=== PATIENT | female | born 1970 | race Caucasian/White ===

== ENCOUNTER 2017-07-19 22:33 | Observation (INO) | payer BC ==
[2017-07-19 23:43] LABS: Mean Corpuscular HGB Conc 35 g/dl (31-36)
[2017-07-19 23:53] LABS: Hematocrit 41 % (35-47); Hemoglobin 14.2 g/dl (12.0-16.0); Mean Corpuscular Hemoglobin 33 pg (27-31); Mean Corpuscular Volume 95 fL (80-97); Mean Platelet Volume 9 um3 (7.4-10.4); Red Blood Count 4.33 10^6/ul (4.0-5.4); Red Cell Distribution Width 12 % (10.5-15)
[2017-07-19 23:57] LABS: Potassium 3.8 mmol/L (3.5-5.0)
[2017-07-19 23:58] LABS: Albumin 4.2 g/dL (3.2-5.2); Calcium 9.1 mg/dL (8.6-10.3); EGFR African American 83.8 (>60); EGFR Non-African American 65.2 (>60); Total Bilirubin 0.5 mg/dL (0.2-1.0); Total Protein 7.2 g/dL (6.4-8.9)
[2017-07-20] MEDS ORDERED: Iohexol 350* (CONTRAST) 500 ML MDV IV ONE (00:44)
[2017-07-20] MEDS ORDERED: Aspirin TAB* 325 MG PO ONE (01:50)
[2017-07-20] MEDS ORDERED: Acetaminophen TAB* 325 MG PO PRN (02:05)
[2017-07-20] MEDS ORDERED: Albuterol HFA INHALER* 8 gm MDI INH PRN (02:40)
[2017-07-20] MEDS ORDERED: Calcium Carbonate CHEW TAB* 500 MG (TUMS) PO PRN (02:40)
--- NOTE | 2017-07-20 02:46 | ED ---
Heriberto Foley Angela, scribed for Chuckie Lazaro on 07/19/17 at 2255 . Neurological HPI - HPI Summary HPI Summary: This pt is a 47 y/o female presenting [facility] c/o sudden onset of left arm and left leg numbness since 21:00 today. She states "my hand locked up and I couldn' t move it." Now, pt reports her numbness has resolved, but she feels her left side of face is tingly and her left arm "just doesn't feel right." Pt notes that before this episode, she was fine and was baking. She denies past history of strokes. Pt states she has severe asthma. Pt denies tobacco use but notes she drinks beer once in a while. - History of Current Complaint Chief Complaint: EDExtremityUpper Stated Complaint: LT ARM AND LEG NUMBNESS Time Seen by Provider: 07/19/17 22:50 Hx Obtained From: Patient Hx Last Menstrual Period: ablasion - 12/2013 Onset/Duration: Started hours ago, Still Present Timing: Sudden Onset Neurological Deficit Location: RUE, RLE Pain Intensity: 0 Character: Numbness/Tingling Aggravating: Nothing Alleviating: Nothing Associated Signs and Symptoms: Positive: Numbness - Allergy/Home Medications Allergies/Adverse Reactions: Allergies Allergy/AdvReac Type Severity Reaction Status Date / Time Hydrocodone Allergy Nausea And Verified 05/26/16 08:00 Vomiting ENVIRONMENTAL Allergy Unknown Uncoded 05/26/16 08:00 Reaction Details SPICY FOODS Allergy Unknown Uncoded 05/26/16 08:00 Reaction Details WHEAT, BARLEY, RYE Allergy Unknown Uncoded 05/26/16 08:00 Reaction Details PMH/Surg Hx/FS Hx/Imm Hx Endocrine/Hematology History: Denies: Hx Diabetes, Hx Thyroid Disease Cardiovascular History: Denies: Hx Hypertension Respiratory History: Reports: Hx Asthma - PRN INHALER Denies: Hx Chronic Obstructive Pulmonary Disease (COPD) GI History: Reports: Hx Gastroesophageal Reflux Disease Denies: Hx Ulcer Musculoskeletal History: Reports: Hx Tendonitis - HISTORY OF Sensory History: Denies: Hx Contacts or Glasses, Hx Hearing Aid Opthamlomology History: Denies: Hx Contacts or Glasses - Surgical History Surgery Procedure, Year, and Place: tubal ligation. ablasion. right shoulder surgery. sinus surgery. polyp removal from colon 2015-. COLONOSCOPY-WITH POLYP-2012 Hx Anesthesia Reactions: Yes - DIZZINESS-2016 Infectious Disease History: No Infectious Disease History: Denies: Hx Clostridium Difficile, Hx Hepatitis, Hx Human Immunodeficiency Virus (HIV), Hx of Known/Suspected MRSA, Hx Shingles, Hx Tuberculosis, Hx Known/ Suspected VRE, Hx Known/Suspected VRSA, History Other Infectious Disease, Traveled Outside the [place] in Last 30 Days - Family History Known Family History: Positive: Cardiac Disease - Brother: due to [place]., Renal Disease - Sister, Other - Father: colon CA - Social History Alcohol Use: Weekly Alcohol Amount: 12 PACK PER WEEK Substance Use Type: Reports: None Hx Tobacco Use: No - SECOND HAND SMOKE Smoking Status (MU): Former Smoker Amount Used/How Often: X 30 YEARS- SMOKED WHEN WAS STRESSED Have You Smoked in the Last Year: No Review of Systems Negative: Fever, Chills Eyes: Negative ENT: Negative Cardiovascular: Negative Respiratory: Negative Gastrointestinal: Negative Genitourinary: Negative Positive: Paresthesia - right side of face, right arm, Numbness - in right arm and right leg All Other Systems Reviewed And Are Negative: Yes Physical Exam - Summary Physical Exam Summary: Appearance: Well appearing, no pain distress Skin: warm, dry, reflects adequate perfusion Head/face: normal Eyes: EOMI, JACQUES ENT: normal Neck: supple, nontender Respiratory: CTA, breath sounds present Cardiovascular: RRR, pulses symmetrical Abdomen: nontender, soft Bowel: present Musculoskeletal: normal, strength/ROM intact Neuro: normal, sensory motor intact, A&Ox3. NIH scale score is 0. GCS: 15 Triage Information Reviewed: Yes Vital Signs On Initial Exam: Initial Vitals Temp Pulse Resp BP Pulse Ox 98.4 F 86 16 138/67 99 07/19/17 22:43 07/19/17 22:43 07/19/17 22:43 07/19/17 22:43 07/19/17 22:43 Vital Signs Reviewed: Yes - [place] Coma Scale Best Eye Response: 4 - Spontaneous Best Motor Response: 6 - Obeys Commands Best Verbal Response: 5 - Oriented Diagnostics - Vital Signs Vital Signs Temp Pulse Resp BP Pulse Ox 07/19/17 22:43 98.4 F 86 16 138/67 99 - Laboratory Lab Results: Lab Results 07/19/17 07/19/17 07/19/17 Range/Units 23:26 23:26 23:26 WBC 8.0 (3.5-10.8) 10^3/ul RBC 4.33 (4.0-5.4) 10^6/ul Hgb 14.2 (12.0-16.0) g/dl Hct 41 (35-47) % MCV 95 (80-97) fL MCH 33 H (27-31) pg MCHC 35 (31-36) g/dl RDW 12 (10.5-15) % Plt Count 344 (150-450) 10^3/ul MPV 9 (7.4-10.4) um3 Neut % (Auto) 71.0 (38-83) % Lymph % (Auto) 16.9 L (25-47) % [place] % (Auto) 7.7 (1-9) % Eos % (Auto) 3.1 (0-6) % Baso % (Auto) 1.3 (0-2) % Absolute Neuts (auto) 5.7 (1.5-7.7) 10^3/ul Absolute Lymphs (auto) 1.4 (1.0-4.8) 10^3/ul Absolute Monos (auto) 0.6 (0-0.8) 10^3/ul Absolute Eos (auto) 0.2 (0-0.6) 10^3/ul Absolute Basos (auto) 0.1 (0-0.2) 10^3/ul Absolute Nucleated RBC 0 10^3/ul Nucleated RBC % 0.1 INR (Anticoag Therapy) 0.94 (0.77-1.02) APTT 26.5 (26.0-36.3) seconds Sodium 134 (133-145) mmol/L Potassium 3.8 (3.5-5.0) mmol/L Chloride 106 (101-111) mmol/L Carbon Dioxide 23 (22-32) mmol/L Anion Gap 5 (2-11) mmol/L BUN 11 (6-24) mg/dL Creatinine 0.92 (0.51-0.95) mg/dL Est GFR ( Amer) 83.8 (>60) Est GFR (Non-Af Amer) 65.2 (>60) BUN/Creatinine Ratio 12.0 (8-20) Glucose 108 H (70-100) mg/dL Calcium 9.1 (8.6-10.3) mg/dL Total Bilirubin 0.50 (0.2-1.0) mg/dL AST 15 (13-39) U/L ALT 13 (7-52) U/L Alkaline Phosphatase 60 (34-104) U/L Troponin I 0.00 (<0.04) ng/mL Total Protein 7.2 (6.4-8.9) g/dL Albumin 4.2 (3.2-5.2) g/dL Globulin 3.0 (2-4) g/dL Albumin/Globulin Ratio 1.4 (1-3) Result Diagrams: 07/19/17 23:26 07/19/17 23:26 Lab Statement: Any lab studies that have been ordered have been reviewed, and results considered in the medical decision making process. - Radiology Chest XR Xray Interpretation: No Acute Changes - Negative chest XR. Radiology Interpretation Completed By: ED Physician - CT Brain CT CT Interpretation: No Acute Changes - IMPRESSION: No detectable infarct. Please note that infarcts less than 6 hours from onset may not be detectable on CT. MRI is more sensitive. No hemorrhage. No mass. No edema shift of herniation. Dr. Lazaro has reviewed this radiology report. CT Interpretation Completed By: Radiologist Head CTA CT Interpretation: No Acute Changes - IMPRESSION: Brain: The anterior and posterior arterial circulation are patent. No stenosis occlusion dissection or aneurysm. CT angiography neck: The cervical common carotid arteries, bifurcations, the cervical internal carotid arteries and the bilateral cervical vertebral arteries are all patent. No stenosis occlusion dissection or aneurysm. Dr. Lazaro has reviewed this radiology report. CT Interpretation Completed By: Radiologist - EKG 2310 Cardiac Rate: NL EKG Rhythm: Sinus Rhythm - at 87 bpm EKG Interpretation: No acute changes NIH Scale - NIH Scale Level of Consciousness: Alert/Keenly Responsive Ask Patient the Month and His/Her Age: Both Correct Ask Pt to Open/Close Eyes and Gauntlet Pairer/Release Non-Paretic Hand: Both Correctly Best Gaze (Only Horizontal Eye Movement): Normal Visual Field Testing: No Visual Loss Facial Paresis-Pt to Smile & Close Eyes or Grimace Symmetry: Normal/Symmetrical Motor Function - Right Arm: No Drift-Holds 10 Seconds Motor Function - Left Arm: No Drift-Holds 10 Seconds Motor Function - Right Leg: No Drift-Holds 10 Seconds Motor Function - Left Leg: No Drift-Holds 10 Seconds Limb Ataxia-Must be out of Proportion to Weakness Present: Absent Sensory (Use Pinprick to Test Arms/Legs/Trunk/Face): Normal Best Language (Describe Picture, Name Items): No Aphasia Dysarthria (Read Several Words): Normal Extinction and Inattention: No Abnormality Total Score: 0 Course/Dx - Course Course Of Treatment: Pt is a 47 y/o female who presents with sudden onset of left arm and left leg numbness since 21:00 today, now with tingling. Bloodwork, EKG, chest XR, and CT brain were obtained. Chest XR is negative. CT brain is negative.d/w dr Juarez and [facility] [place] who recommended cta of head and neck . CTA of the head is negative. I discussed the pt's case with Dr. Herring , who has agreed to admit the pt. Dx of TIA. - Diagnoses Provider Diagnoses: TIA (transient ischemic attack) - Physician Notifications Discussed Care Of Patient With: Radiologist Time Discussed With Above Provider: 23:25 Instructed by Provider To: Other - Radiologist called me regarding the negative CT brain results. [23:27] I discussed the pt's case with Dr. Juarez, neurologist , who recommends to call [facility] for telestroke. [01:57] I spoke with Dr. Herring, hospitalist, who has agreed to admit the pt. - Critical Care Time Critical Care Time: 30-74 min - 30 minutes critical care time Discharge - Discharge Plan Condition: Stable Disposition: ADMITTED TO [facility] The documentation as recorded by the Heriberto reddy Angela accurately reflects the service I personally performed and the decisions made by me, Chuckie Lazaro.
[2017-07-20 04:27] LABS: TSH (Thyroid Stimulating Horm) 2.29 mcIU/mL (0.34-5.60)
[2017-07-20] MEDS ORDERED: Omeprazole CAP* 20 MG PO SCH (06:00)
--- NOTE | 2017-07-20 06:11 | HP ---
CC: Dr. Shah; Dr. Juarez * HISTORY AND PHYSICAL: DATE OF ADMISSION: 07/20/17 PRIMARY CARE PROVIDER: Dr. Shah CHIEF COMPLAINT: Left-sided numbness, transient, resolved. 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 The patient stated that the night prior to her presentation, she slept only 4 hours. Last night she slept pretty well, but she noticed transient episodes of left arm and leg numbness that lasted approximately 30 minutes. The patient stated that she was able to walk without any problems, but she felt "so weak" that she laid on the floor when she was waiting for the ambulance to arrive. She denied any problems with vision or headache. She has no pain. She presented to the ED for evaluation. Her neurologic symptoms resolved. She is going to be placed on overnight observation with a diagnosis of possibility of TIA. PAST MEDICAL HISTORY: 1. History of gastroesophageal reflux disease. 2. History of asthma. 3. History of eosinophilic esophagitis. 4. Status post tubal ligation. 5. History of uterine ablation. MEDICATIONS: Include 1. Advair 1 inhalation twice a day. 2. Tums on a p.r.n. basis. 3. Albuterol inhaler on a p.r.n. basis. 4. Xyzal 1 tablet daily. ALLERGIES: Include HYDROCODONE. FAMILY HISTORY: Positive for father who of colon cancer in his 80s. Mother who of thyroid cancer. The patient's sister had a history of kidney disease. SOCIAL HISTORY: The patient states that she drinks several beers a weekend, but she does not during during the week days. She quit smoking 5 years ago and she smoked "occasionally" from [id number]-rw-gyrb. She could not really quantify it. She denies any illicit drug use. She lives with her who would be her surrogate. REVIEW OF SYSTEMS: Please see history of present illness. All the remaining 12 - systems are reviewed with the patient and were otherwise negative. PHYSICAL EXAMINATION GENERAL: The patient is a very pleasant 47-year-old female who is in no acute distress. Alert, awake and oriented x3. VITAL SIGNS: Blood pressure 114/71, heart rate of 101 and regular, respiratory rate 25, oxygen saturation 99% on room air. Temperature of 98.4. HEENT: Head: Atraumatic, normocephalic. Eyes: Pupils are equal and reactive to light and accommodation. Oropharynx clear. Mucosa moist. NECK: Supple. No JVD and no bruits bilaterally. RESPIRATORY: Clear to auscultation bilaterally. CARDIOVASCULAR: Regular rate and rhythm. No murmur. ABDOMEN: Soft and nontender. Bowel sound are present in all 4 quadrants. EXTREMITIES: There is no edema. Pulses are +2 bilaterally. There is no clubbing or cyanosis. NEURO EVALUATION: Speech clear. Cranial nerves II through XII grossly intact. Motor strength is 5/5 bilaterally in bilateral lower extremities. The patient does appear to have slightly weaker handgrip on the left. The patient is right hand dominant. Obbswt-ud-uhnt is noted to be symmetric. There was no sensation deficit noted. Patient does have also fine tremor in bilateral hands on evaluation. She appears mildly anxious. PSYCHIATRIC EVALUATION: The patient is oriented x3 with mildly anxious appearing. DIAGNOSTIC STUDIES/LABORATORY DATA: Show a sodium of 134, potassium 3.8, chloride 106, carbon dioxide 23, BUN 11, creatinine 0.92. Liver function tests are unremarkable. Troponin of 0. CBC: White cell count of 8.0, hemoglobin of 14.2, hematocrit of 41 and platelets of 344. The patient's head CTA was verbally reported to Dr. Lazaro who reported that to me. Apparently that was unremarkable. The official report is still pending at the time of dictation. The patient's EKG showed normal sinus rhythm with no significant ST changes. CT of the head showed no detectable infarct. ASSESSMENT AND PLAN: 1. A 47-year-old female who has been under a significant amount of stress, is not sleeping well due to problems with working parking cashier for the past couple of months. The patient has transient left-sided numbness. I am not 100% sure if the patient's left handgrip weakness is functional or not at this point. She does not have numbness in her fingers. Her rgoynq-qw-gbms is not dysmetric. She does not have pronator drift. So far her workup had been unremarkable. She is going to be observed on the telemetry monitoring bed. Transthoracic echocardiogram with bubble study is going to be obtained as well as MRI of the brain. The patient is going to be placed on aspirin. I also asked Dr. Juarez to see the patient in consultation. 2. In regards to the patient's asthma, it is well controlled. There is no evidence of wheezing upon evaluation. Advil and albuterol is going to be continued. 3. Gastroesophageal reflux disease: The patient is going to be continued on Tums as she requested. 4. For DVT prophylaxis, the patient is fully ambulatory and that is going to be encouraged. 5. The patient code status is full and her surrogate is her . TIME SPENT: Approximately 60 minutes was spent on admission of this patient, more than half of that time was spent [id number] with the patient during the interview and physical exam. [id number]/[facility] #: [id number] LUZ
[2017-07-20 06:20] LABS: HDL Cholesterol 56.7 mg/dL
--- NOTE | 2017-07-20 07:52 | RAD ---
Indication: Stroke. CT of the brain was performed without IV contrast. Ventricular structures are midline. No midline shift is noted. The extraction spaces are unremarkable. Intradural structures are midline. No midline shift is noted. The extra-axial spaces are unremarkable. No evidence of intracranial mass or hemorrhage. No other high or low density lesions are identified. Mastoid air cells and paranasal sinuses are otherwise unremarkable. IMPRESSION: No intracranial mass or hemorrhage is noted. Findings were discussed with Dr. Lazaro at 2324 hours.
--- NOTE | 2017-07-20 08:11 | RAD ---
Indication: LEFT side chest pain and tingling. Shortness of breath. Asthma. Cardiac disease. Comparison: No relevant prior exams available on the [facility] PACS for comparison. Technique: Upright AP 2330 hours Report: Clear lungs and pleural spaces. Negative for pneumothorax. The heart, pulmonary vasculature, and mediastinal contours are unremarkable. Unremarkable osseous structures and soft tissue contours. IMPRESSION: No evidence for acute intrathoracic disease.
--- NOTE | 2017-07-20 08:20 | RAD ---
Indication: Stroke. Contrast: Administered 80.2 ml of OMNIPAQUE 350 mg/ml CTA of the neck and head was performed after IV contrast demonstration. Coronal and sagittal reconstructed images were obtained. The carotid arteries demonstrates no stenosis. Bifurcation is unremarkable. No evidence of stenosis is noted in the internal carotid arteries. No evidence of carotid artery dissection is noted. The intracranial vessels including the intracranial carotid arteries are unremarkable. Anterior and middle cerebral arteries demonstrates normal bifurcation. No evidence of branch occlusion is identified. No aneurysmal dilatation is noted. IMPRESSION: No intracranial lesion is identified. No evidence of aortic dissection. No branch occlusion is noted.
[2017-07-20] MEDS ORDERED: Aspirin Low Dose CHEW TAB* 81 MG PO SCH (09:00)
[2017-07-20] MEDS ORDERED: Mometasone/Formoter 100/5 MDI INH SCH (09:00)
--- NOTE | 2017-07-20 11:13 | RAD ---
INDICATION: Transient one side weakness. COMPARISON: Comparison is made with a prior CT of the brain from July 19, 2017. TECHNIQUE: Sagittal T1, axial T1, T2, susceptibility, FLAIR and diffusion weighted images were obtained. FINDINGS: The ventricles, cisterns and sulci appear to be within normal limits. No significant focal abnormality or mass effect is seen. No areas of restricted diffusion are present. There is no evidence for infarct or hemorrhage. The visualized portion of the paranasal sinuses and mastoid air cells appear clear. IMPRESSION: NO EVIDENCE FOR ACUTE INTRACRANIAL ABNORMALITY.
[2017-07-20 11:26] VITALS: BP 103/64
--- NOTE | 2017-07-20 14:33 | ECHO ---
Patient: SABRINA MONTELONGO [facility] Rec#: [id number] : 1970 Date: 07/20/2017 Age: 47y Height: 149.86 cm / 59.0 in Weight: 63.5 kg / 140.0 lbs Sex: F BSA: 1.58 Room#: 441 Admit Date#: 07/20/2017 Type: Inpatient Referring: Gillian Herring MD Reading: Jmi Olivier MD Bag Loader: Zarina Castaneda CHAN CC: Stefan Shah MD Transthoracic Echocardiogram Indication: TIA BP: 114/72 HR: 88 Rhythm: NSR Findings History: Asthma,GERD,esophagitis, transient left sided numbness. Technical Comments: The study quality is good. Completed at 1019. Left Ventricle: The left ventricular chamber size is normal. Global left ventricular wall motion and contractility are within normal limits. There is normal left ventricular systolic function. The estimated ejection fraction is 55-60%. Abnormal left ventricular diastolic function is observed. Abnormal left ventricular diastolic filling is observed, consistent with impaired relaxation. Left Atrium: The left atrial chamber size is normal. Right Ventricle: The right ventricular cavity size is normal.RV wall thickness upper limits of normal at 5 mm. The right ventricular global systolic function is normal. Right Atrium: The right atrial cavity size is normal. There is no patent foramen ovale visualized. A patent foramen ovale is not demonstrated with color Doppler and agitated contrast. Aortic Valve: The aortic valve is trileaflet. There is no evidence of aortic valve thickening. There is no evidence of aortic regurgitation. There is no evidence of aortic stenosis. Mitral Valve: The mitral valve leaflets are mildly thickened. There is no evidence of mitral regurgitation. There is no evidence of mitral stenosis. Tricuspid Valve: The tricuspid valve leaflets are normal. There is trace tricuspid regurgitation. Unable to estimate the right ventricular systolic pressure. Pulmonic Valve: The pulmonic valve appears normal. There is no evidence of pulmonic regurgitation. There is no pulmonic stenosis. Pericardium: The pericardium appears normal. Aorta: There is no dilatation of the ascending aorta. There is no dilatation of the aortic arch. There is no dilation of the aortic root. Pulmonary Artery: The main pulmonary artery appears normal. Venous: The inferior vena cava appears normal in size. There is a greater than 50% respiratory change in the inferior vena cava dimension. Contrast: Normal saline was used as contrast for the bubble study. Intravenous contrast was used to help determine presence of intracardiac shunting. Summary: There was not any prior study for comparison. Conclusions Global left ventricular wall motion and contractility are within normal limits. The estimated ejection fraction is 55-60%. Abnormal left ventricular diastolic filling is observed, consistent with impaired relaxation. There is trace tricuspid regurgitation. Measurements Name Value Normal Range RVIDd (AP) 2D 2 cm (0.9 - 2.6) RAd ISD 4CH 3.4 cm (3.4 - 4.9) RA (A4C)W 2.4 cm (2.9 - 4.6) IVSd (2D) 0.9 cm (0.6 - 1) LVPWd (2D) 1.1 cm (0.6 - 1) LVIDd (2D) 3.3 cm (3.6 - 5.4) LVIDs (2D) 2.4 cm - LV FS (2D) 25 % (25 - 45) Aortic Annulus 1.7 cm (1.4 - 2.6) Ao root diameter (2D) 2.4 cm (2.1 - 3.5) Ascending Ao 2.3 cm (2.1 - 3.4) Aortic arch 1.6 cm (1.8 - 3.4) Descending Ao 1.3 cm - LA dimension (AP) 2D 2.3 cm (2.3 - 3.8) LAd ISD 4CH 3.8 cm (2.9 - 5.3) LA ISD 4CH W 2.3 cm (2.5 - 4.5) Name Value Normal Range LA ESV SP 4CH (A/L) 13 ml - LA ESV SP 2CH (A/L) 22 ml - LA ESV BP (A/L) 17 ml - LA ESV BP (A/L) index 10.88 ml/m2 - LA ESV SP 4CH (MOD) 12 ml - LA ESV SP 2CH (MOD) 21 ml - Name Value Normal Range MV E-wave Vmax 0.7 m/sec - MV deceleration time 113 msec - MV A-wave Vmax 0.9 m/sec - MV E:A ratio 0.81 ratio - LV septal e' Vmax 0.08 m/sec - LV lateral e' Vmax 0.11 m/sec - LV E:e' septal ratio 8.75 ratio - LV E:e' lateral ratio 6.36 ratio - Name Value Normal Range AV Vmax 1.8 m/sec - AV VTI 29.6 cm - AV peak gradient 12.69 mmHg - AV mean gradient 6.05 mmHg - LVOT Vmax 1.1 m/sec - LVOT VTI 20.6 cm - LVOT peak gradient 5.23 mmHg - LVOT mean gradient 2.66 mmHg - Name Value Normal Range IVC diameter 1.5 cm - Name Value Normal Range PV Vmax 0.9 m/sec - PV peak gradient 3.36 mmHg -
--- NOTE | 2017-07-20 20:48 | CONS ---
CC: Dr. Shah * NEUROLOGY CONSULTATION: DATE OF CONSULT: 07/20/17 REQUESTING PROVIDER: Gillian Herring MD REASON FOR CONSULT: Possible TIA. HISTORY OF PRESENT ILLNESS: Marium Garber is a 47-year-old woman with a history of asthma, allergies and GERD, who presented to the emergency department last night with transient left-sided symptoms. She was getting ready to eat dinner prior to working the third shift at [employer] and had just gotten out of the shower when she noticed the sudden onset of cramping in her left hand. She indicates that her fingers were all crossed over one another and her hand was clasped and she was unable to open it. She then developed a tingling sensation that went up her arm into her face and down her left leg as well. She became extremely frightened and called her niece who then called her boyfriend who called 911 for her. She indicates that when the paramedics arrived, her hand was still clenched and they had to manually open it for her. She estimates this lasted about 40 minutes. Her sensory symptoms gradually resolved and were mostly resolved when she was here in the emergency department , though she thinks the tingling in her arm resolved more so in the middle of the night. Today, she still has some pain in her left forearm, but she also has a hematoma there from a failed attempt at an IV and she also thinks that the arm is crampy from this sustained contraction she had of the hand yesterday. She denies any alteration in her consciousness with this event. She says that she felt like she was going to pass out, but is not able to say if she had any specific balance difficulties or vertigo. She does not think she had any vision changes when this happened and she did not have any speech changes. She has no prior history of neurologic problems. She has not been sleeping well and she has not been eating well over the past 3 months and especially for the past 2 days. She has been on third shift at [employer] since April and says she really has not been able to sleep more than 4 hours a day since she had this shift change. In addition, she says she has not eaten anything in the last 2 days until she was making herself dinner last night prior to going to work. She is nonspecific when asked why she does not eat when she is at work or at other times saying that if she is not working or trying to sleep, then "I am just lazy." She denies feeling depressed. She is also under some stress because she is going to be spending [place] away from her son who lives locally and instead is going to be spending it with another son who is in the army in another state. She is feeling guilty about leaving her 2 grand kids and her son and [id number] here. She reports that she used to take a baby aspirin daily because of her brother's history of heart disease, but is no longer doing that. PAST MEDICAL HISTORY: 1. GERD. 2. Asthma. 3. Eosinophilic esophagitis. 4. Status post tubal ligation and uterine ablation. HOME MEDICATIONS: Include: 1. Advair twice daily. 2. Tums as needed. 3. Albuterol as needed. 4. Xyzal daily. ALLERGIES: Include HYDROCODONE as well as ENVIRONMENTAL ALLERGIES, WHEAT, BARLEY, and RYE as well as SPICY FOOD. FAMILY HISTORY: Father of colon cancer in his 80s. Mother of thyroid cancer. Sister had kidney disease. Brother had heart disease. SOCIAL HISTORY: She has been an on and off smoker for many years, but has not smoked in the last 5 years. She drinks beer occasionally on the weekends, but not typically during the week. No illicit drug use. She lives with her boyfriend. REVIEW OF SYSTEMS: She denies any recent illness. Otherwise as per the HPI. PHYSICAL EXAM: Vital Signs: Temperature 97.8, blood pressure 103/64, heart rate 91, and oxygen saturation 99% on room air. Her telemetry has been unremarkable. On general examination, she is a pleasant woman in no acute distress. Heart is in a regular rate and rhythm with a soft systolic ejection murmur. Her lungs are clear to auscultation bilaterally. There are no carotid bruits. Her skin exam shows a hematoma on the left ventral forearm. There is no extremity edema. On neurologic exam, she is fully awake, alert, and oriented. There is no dysarthria or aphasia. On cranial nerve testing, her pupils are equal, round, and reactive from 3 to 2 mm bilaterally. Versions are full without nystagmus. [place] are full to confrontation. Facial sensation and musculature is full and symmetric. Hearing is intact to finger rub. The palate elevates symmetrically and the tongue is midline. Shoulder shrug is full and symmetric. On motor examination, she has normal bulk and tone in the upper and lower extremities. Strength is full both proximally and distally. There is no pronator drift. Sensation is intact to light touch and temperature with no extinction to double simultaneous stimulation. Reflexes are 2+ throughout with downgoing toes. I do note that when the bottom of her foot was struck with the reflex hammer for testing, her ankle jerk on the left, she reported tingling from the mid foot up through all the toes. [id number] and [id number] were normal. I did not ambulate her at this time. DIAGNOSTIC STUDIES/LAB DATA: CBC was largely unremarkable aside from a slightly elevated MCH of 33. Her coagulation studies were normal. CMP showed a glucose of 108 in the ER yesterday. Renal function and liver functions were normal. TSH 2.29. Fasting lipid panel this morning showed triglycerides 88, total cholesterol 206, LDL 132, HDL 56.7. Hemoglobin A1c 4.9%. Brain CT was obtained and showed no acute intracranial abnormalities. A head CTA was obtained and personally reviewed and showed no significant stenosis, atherosclerosis, or vascular malformation. Her brain MRI was obtained and personally reviewed and was a normal study. IMPRESSION: Marium Garber is a 47-year-old woman with no significant vascular risk factors who presented with transient left-sided dysfunction including cramping of the left hand as well as face, arm, and leg numbness on the left which resolved over a course of a few hours. Her workup thus far has been negative. The differential would include transient ischemic attack, though there is no clear risk factor for this. She has been under a lot of stress lately and has not been taking good care of herself and so a nonorganic, stress related etiology is also possible. We are currently awaiting her echocardiogram results. I discussed the above possibilities with her. I suggest that she continue on aspirin 81 mg daily. In addition, because of her LDL of 132, she should be started on statin. If her echocardiogram shows a PFO, then we should obtain lower extremity Dopplers. If the remaining testing is unremarkable, then she is stable from a neurological perspective for discharge. I counseled her on the importance of eating regularly and trying to get a good sleep. She indicates that her third shift work should be temporary and anticipates being able to go back to second shift hopefully in the late winter or early spring. Thank you for this consultation. [id number]/[facility] [place] #: [id number] LUZ
--- NOTE | 2017-07-21 05:11 | DS ---
CC: Dr. Shah; Dr. Juarez DISCHARGE SUMMARY: DATE OF ADMISSION: 07/20/17 DATE OF DISCHARGE: 07/20/17 PRIMARY CARE PROVIDER: Dr. Shah. CONSULTING NEUROLOGIST: Dr. Juarez. DISCHARGE DIAGNOSIS: Possible transient ischemia attack. SECONDARY DIAGNOSES: 1. Gastroesophageal reflux disease. 2. Asthma. 3. Eosinophilic esophagitis. MEDICATION LIST: 1. Tums 2 tablets 2 daily. 2. Lansoprazole 60 mg p.o. daily. 3. Albuterol HFA 2 puffs inhaled q.4 hours p.r.n. shortness of breath. New medications: 1. Aspirin 81 mg p.o. daily. 2. Pravastatin 20 mg p.o. at bedtime. HOSPITAL COURSE: Ms. Garber is a 47-year-old lady with a past medical history as stated above who pre sented to the emergency room with complaints of transient left- sided numbness. For details about he r presentation, I refer you to her history and physical. The patient was admitted under the impression of a possible TIA, but she was also noted to be under a significant amount of stress and sleep deprived. CTA of the head and neck showed no intracranial le nathan identified. No signs of aortic dissection. No branch occlusion. MRI of the brain showed no ev idence for acute intracranial abnormality and a transthoracic echocardiogram showed ejection fraction of 55% to 60% with no wall motion abnormalities and no evidence of a PFO. Hemoglobin A1c was 4.9 and her lipid profile showed an LDL of 132. The patient was seen in consultation by Neurology (Dr. Juarez) and she felt that the patient's present ation was atypical and could be associated with her work-related stress, but she felt that adding low dose aspirin and statin would be prudent. The patient is asymptomatic at this time and she will follow up with her primary care provider, Dr. Roseanne monique. If she has recurrence of her symptoms, she should be evaluated by Surgery again. The patient received education regarding her new medications and actually is going to be started on s tatin at this time and she would benefit of evaluation of her LFTs and CPK later on. Please keep in mind this is a summarized version of this patient's hospital stay. If you need more in formation, please feel free to call me at [phone] or please obtain the full medical record. TIME SPENT: Approximately 45 minutes were spent to complete this discharge. [id number]/[facility] #: [id number]
== END 2017-07-20 16:10 | disposition home or self-care (01) ==
LOC: ED 22:33 → MEDTELE 07-20 02:03
PROVIDERS: ADMIT Internal Medicine; ATTEND Internal Medicine
DX: R20.0 Anesthesia of skin (principal); K21.9 Gastro-esophageal reflux disease without esophagitis; J45.909 Unspecified asthma, uncomplicated; K20.0 Eosinophilic esophagitis; Z79.82 Long term (current) use of aspirin; Z79.899 Other long term (current) drug therapy; Z88.5 Allergy status to narcotic agent; Z87.891 Personal history of nicotine dependence
CPT/HCPCS: 36415; 70450; 70496; 70498; 70551; 71010; 80053; 80061; 83036; 84443; 84484; 85025; 85610; 85730; 93005; 93306; 99284; A9270-GY; G0378; Q9967